=== PATIENT | male | born 1965 | race Asian ===

== ENCOUNTER 2021-12-08 10:37 | Day surgery (SDC) | payer OTHER ==
[2021-12-08 13:45] VITALS: BMI 25.9
[2021-12-08] MEDS ORDERED: LIDOCAINE HCL/PF (2%) 40 MG/2 ML VIAL ONE (15:48)
[2021-12-08] MEDS ORDERED: MIDAZOLAM HCL 2 MG/2 ML SINGLE DOSE VIAL ONE (15:49)
[2021-12-08] MEDS ORDERED: ceFAZolin SODIUM 1 GM VIAL ONE (15:50)
[2021-12-08] MEDS ORDERED: ELECTROLYTE-148 SOLN 1,000 ML IV SCH (16:00)
[2021-12-08] MEDS ORDERED: ceFAZolin SODIUM 1 GM VIAL IVPB ONE (16:04)
[2021-12-08] MEDS ORDERED: ALBUTEROL SO4 HFA INHALER IH ONE (16:05)
[2021-12-08] MEDS ORDERED: DEXAMETHASONE SOD PHOSPHATE 4 MG/1 ML VIAL ONE (16:07)
[2021-12-08] MEDS ORDERED: oxyCODONE HCL 5 MG TABLET PO PRN ×2 (16:08)
[2021-12-08] MEDS ORDERED: ONDANSETRON 4 MG/2 ML VIAL IVPUSH PRN (16:08)
[2021-12-08] MEDS ORDERED: LACTATED RINGERS SOLUTION 1,000 ML IV SCH (16:15)
[2021-12-08] MEDS ORDERED: ONDANSETRON 4 MG/2 ML VIAL ONE (17:48)
[2021-12-08] MEDS ORDERED: ONDANSETRON 4 MG/2 ML VIAL IVPUSH ONE (17:50)
[2021-12-08 18:38] VITALS: RESP 16; TEMP 98
[2021-12-08 19:23] VITALS: BP 137/88; PULSE 75
== END 2021-12-08 19:25 | disposition home or self-care (01) ==
LOC: JASU-SURG 10:37
PROVIDERS: ATTEND Urology
PROC: 0TF68ZZ Fragmentation in Right Ureter, Via Natural or Artificial Opening Endoscopic (ICD-10-PCS; principal; 2021-12-08 12:30)
PROC: 0T768DZ Dilation of Right Ureter with Intraluminal Device, Via Natural or Artificial Opening Endoscopic (ICD-10-PCS; 2021-12-08 12:30)
DX: N20.1 Calculus of ureter (principal)
CPT/HCPCS: 76000-TC-FY; 94760; C2617; C9803-CS; U0003; U0005